=== PATIENT | male | born 1960 | race Caucasian/White ===

== ENCOUNTER 2022-06-02 13:25 | Emergency (ER) | payer BC ==
[2022-06-02] MEDS ORDERED: Sodium Chloride 0.9% 250 ML 250 ML ONE (14:29)
[2022-06-02] MEDS ORDERED: Cefepime 2 GM VIAL ONE ×2 (14:29→14:31)
[2022-06-02] MEDS ORDERED: Sodium Chloride 0.9% 100 ML ONE ×2 (14:29→14:31)
[2022-06-02 14:48] LABS: ALT (SGPT) 30 U/L (8-55); AST (SGOT) 30 U/L (5-34); Albumin 3.5 g/dL (3.5-5.0); Alkaline Phosphatase 63 U/L (40-110); Anion Gap 18 mmol/L (10-20); BUN (Urea Nitrogen) 10 mg/dL (8.4-25.7); Bilirubin, Total 0.6 mg/dL (0.2-1.2); CK (CPK) 143 U/L (30-200); Calc. Creatinine Clearance 0 mL/min (70-130); Calcium 9.2 mg/dL (7.8-10.44); Carbon Dioxide 20 mmol/L (22-29); Chloride 92 mmol/L (98-107); Estimated GFR 92; Globulin 3.9 g/dL (2.4-3.5); Glucose 358 mg/dL (70-105); Protein, Total 7.4 g/dL (6.0-8.3); Sodium 126 mmol/L (136-145)
[2022-06-02 14:54] LABS: Band 20 % (5-11); Hemoglobin 13.9 g/dL (14.0-18.0); Hypochromia SLIGHT = 6-15 cells (100X) (0-5/hpf); Lymphocytes 7 % (21-51); MDiff Complete? YES; Mean Corpuscular HGB CONC 31.4 g/dL (32.0-36.0); Mean Platelet Volume 8.9 fL (7.4-10.4); Monocytes 2 % (0-10); Neutrophil 71 % (42-75); Platelet Count 172 thou/uL (130-400); Platelet Morphology Comment Appears Adequate; RBC Distribution Width 12.5 % (11.5-14.5); Red Blood Cell (RBC) Count 5.14 mill/uL (4.70-6.10); White Blood Cell (WBC) Count 24.6 thou/uL (4.8-10.8)
[2022-06-02 14:56] LABS: Base Excess-Venous -0.3 mmol/L (-2.0 to 3.0); CO2 Tension (PvCO2) 29.8 mmHg (42.0-51.0); Calcium, Ionized 1.13 mmol/L (1.15-1.33); Chloride 92 mmol/L (98-107); Hemoglobin - Calc 16.8 g/dL (14.0-18.0); Potassium 3.9 mmol/L (3.5-5.1); Sodium 127 mmol/L (138-145); T. Carbon Dioxide 22.9 mmol/L (22.0-28.0); vO2 Saturation-calc 99.4 % (60.0-85.0)
== END 2022-06-02 15:15 | disposition left against medical advice (07) ==
LOC: MADERS 13:25
DX: L03.115 Cellulitis of right lower limb (principal); R73.9 Hyperglycemia, unspecified; E87.1 Hypo-osmolality and hyponatremia; I44.0 Atrioventricular block, first degree
CPT/HCPCS: 36416; 80053; 82010; 82330; 82550; 82803; 83605; 84484; 85025; 87040; 87149; 96365; 36415-59; J0692; J3370; J3490; J7050